=== PATIENT | female | born 1940 | race Caucasian/White ===

== ENCOUNTER → 2019-08-08 | Outpatient (REF) | LOC: M LAB LCGH 15:11 | PROVIDERS: ATTEND Physician Assistant | DX: D48.5 Neoplasm of uncertain behavior of skin (principal) ==

== ENCOUNTER → 2020-03-14 | Outpatient (REF) | payer MEDICARE, OTHER | LOC: M LAB REF 17:51 | PROVIDERS: ATTEND Physician Assistant | DX: C44.310 Basal cell carcinoma of skin of unspecified parts of face (principal) | CPT/HCPCS: 11102; 17000; 17003; 88305; G0463 ==

== ENCOUNTER → 2020-05-09 | Outpatient (REF) | payer MEDICARE | LOC: M LAB REF 14:16 | PROVIDERS: ATTEND Dermatology | DX: C44.319 Basal cell carcinoma of skin of other parts of face (principal) ==

== ENCOUNTER → 2020-06-13 | Outpatient (REF) | payer MEDICARE, OTHER | LOC: M LAB REF 19:16 | PROVIDERS: ATTEND Dermatology | DX: C44.311 Basal cell carcinoma of skin of nose (principal) ==

== ENCOUNTER → 2020-06-14 | Outpatient (REF) | payer MEDICARE, OTHER | LOC: M LAB REF 11:44 | PROVIDERS: ATTEND Dermatology | DX: C44.311 Basal cell carcinoma of skin of nose (principal) ==

== ENCOUNTER → 2020-06-15 | Outpatient (REF) | payer MEDICARE, OTHER | LOC: M LAB REF 14:48 | PROVIDERS: ATTEND Dermatology | DX: C44.311 Basal cell carcinoma of skin of nose (principal) ==

== ENCOUNTER → 2021-03-08 | Outpatient (REF) | payer MEDICARE, OTHER | LOC: M LAB REF 17:28 | PROVIDERS: ATTEND Dermatology | DX: C44.41 Basal cell carcinoma of skin of scalp and neck (principal) | CPT/HCPCS: 11102; 88305; G0463 ==